=== PATIENT | female | born 1995 | race Caucasian/White ===

== ENCOUNTER 2017-07-28 16:22 | Emergency (ER) | payer MEDICAID, OTHER ==
[~2017-07-28] VITALS: Ht 170.2 cm; Wt 100.0 kg
[~2017-07-28 16:22] MED LIST: PREN1CAP7 PO
[2017-07-28 16:23] VITALS: BP 134/88; PULSE 107; RESP 15; TEMP 98.5; O2SAT 99
--- NOTE | 2017-07-28 17:49 | PD ---
HPI Chief Complaint: Abdominal Pain Time Seen by Provider: 17:40 Travel History International Travel<30 days: No Contact w/Intl Traveler<30days: No Traveled to known affect area: No History of Present Illness HPI 22-year-old , 3 months female presents to the ED for evaluation of 2 week history of 6/10 lower abdominal discomfort, radiating to the back. No alleviating or exacerbating factors reported. She endorses urinary urgency and thick white vaginal discharge. She denies fevers, chills, nausea, vomiting , decreased appetite, abdominal pain, changes in bowel habits, dysuria, hematuria. She endorses risk of . She states that she took a urine test at home that was "blank." LMP 07/10/17. She takes vitamins daily. No treatment attempted at home. PFSH Past Medical History ?: Unknown LMP: 07/10/17 Social History Alcohol Use: No Tobacco Use: No Substance Use: No Allergies-Medications (Allergen,Severity, Reaction): Coded Allergies: No Known Allergies (Unverified , 07/28/17) Reported Meds & Prescriptions Reported Meds & Active Scripts Active Bactrim DS (Sulfamethoxazole-Trimethoprim) 800-160 Mg Tab 1 Tab PO BID Citranatal [place] ( W/O Vit A W/ Fe Fumar) 27-1-260 Mg Cap 1 Cap PO DAILY Review of Systems Except as stated in HPI: all other systems reviewed are Neg Physical Exam Narrative GENERAL: Well-nourished, well-developed obese white female in no acute distress. SKIN: Focused skin assessment warm/dry. HEAD: Normocephalic. EYES: No scleral icterus. No injection or drainage. NECK: Supple, trachea midline. No JVD or lymphadenopathy. CARDIOVASCULAR: Regular rate and rhythm without murmurs, gallops, or rubs. RESPIRATORY: Breath sounds equal bilaterally. No accessory muscle use. GASTROINTESTINAL: Abdomen soft, non-tender, nondistended. Active bowel sounds. GENITOURINARY: Normal external genitalia without lesions or erythema. Vaginal vault without blood. Small amount of thick, stringy white drainage in the vault. Cervical os was closed without drainage. No cervical motion tenderness. Uterus nontender and nonenlarged. Bilateral adnexa nontender without masses. MUSCULOSKELETAL: No cyanosis, or edema. BACK: Nontender without obvious deformity. No CVA tenderness. Data Data Last Documented VS Vital Signs Date Time Temp Pulse Resp B/P (MAP) Pulse Ox O2 Delivery O2 Flow Rate FiO2 07/28/17 21:04 07/28/17 16:23 98.5 107 15 99 Orders Orders Urinalysis - C+S If Indicated (07/28/17 17:41) Ed Urine Pregnancytest Poc (07/28/17 17:41) Gc And Chlamydia Pcr (07/28/17 19:23) Wet Prep Profile (07/28/17 19:23) Ed Discharge Order (07/28/17 20:25) Labs Laboratory Tests Test 07/28/17 17:50 07/28/17 19:50 Urine Color LIGHT-YELLOW Urine Turbidity CLEAR Urine pH 6.0 Urine Specific [place] 1.009 Urine Protein NEG mg/dL Urine Glucose (UA) NEG mg/dL Urine Ketones NEG mg/dL Urine Occult Blood NEG Urine Nitrite NEG Urine Bilirubin NEG Urine Urobilinogen LESS THAN 2.0 MG/DL Urine Leukocyte Esterase MOD Urine RBC LESS THAN 1 /hpf Urine WBC 7 /hpf Urine Squamous Epithelial Cells 2 /hpf Microscopic Urinalysis Comment CULT NOT INDICATED Clue Cells (Wet Prep) NONE SEEN Vaginal Trichomonas (Wet Prep) NONE SEEN Vaginal Yeast (Wet Prep) NONE SEEN Chlamydia trachomatis DNA (PCR) NOT DETECTED Neisseria gonorrhoeae DNA (PCR) NOT DETECTED MDM Medical Decision Making Medical Screen Exam Complete: Yes Emergency Medical Condition: Yes Differential Diagnosis UTI versus early versus STI versus other Narrative Course 22-year-old 3 month female presents to the ED for evaluation of 2 week history of lower abdominal discomfort, radiating to the back. She endorses urinary urgency and thick white vaginal discharge. She denies fevers, chills, nausea, vomiting, decreased appetite, abdominal pain, changes in bowel habits, dysuria, hematuria. She endorses risk of . She states that she took a urine test at home that was "blank." LMP 07/10/17. She takes vitamins daily. Vitals reviewed. Abdominal exam is very reassuring. Pelvic exam reveals thick, stringy white discharge in the vaginal vault but is otherwise unremarkable. Urine test negative. UA shows moderate leukocyte esterase and 7 wbc's. No culture indicated. Wet prep negative. GC and chlamydia pending. I offered the patient empiric treatment of both which she refused. We'll treat the UTI with Bactrim twice a day 3 days. The patient is instructed take the medication as prescribed, return for worsening symptoms. She indicated understanding of the instructions and is agreeable to the care plan. She is stable and discharged home. Diagnosis Primary Impression: Abdominal pain Qualified Codes: R10.30 - Lower abdominal pain, unspecified Additional Impressions: Vaginal discharge Bacteriuria Referrals: Primary Care Physician Patient Instructions: General Instructions, Urinary Tract Infection in Women ( ED) Additional Instructions: Rest, hydrate. Take all antibiotics as they're prescribed, even if symptoms resolve. In other words, take all the medications until it is gone. Follow up with you primary care provider or the health department as discussed. Return to the ED for any urgent or emergent medical condition. Med/Other Pt SpecificInfo: Prescription(s) given Scripts Sulfamethoxazole-Trimethoprim (Bactrim DS) 800-160 Mg Tab 1 TAB PO BID for Infection, #6 TAB 0 Refills Prov: Hue Parr MD 07/28/17 Disposition: 01 DISCHARGE HOME Condition: Stable Lia Rubio Jul 28, 2017 17:49
[2017-07-28 18:47] LABS: BLOOD, URINE NEG (NEG); COMMENT (UR) CULT NOT INDICATED; CULTURE IF INDICATED CULT NOT INDICATED; GLUCOSE,URINE NEG (NEG); KETONE, URINE NEG (NEG); NITRITE,URINE NEG (NEG); SQUAMOUS EPITHELIAL CELL URINE 2 /hpf (0-5); URINE COLOR LIGHT-YELLOW (YELLW/STRAW)
[2017-07-28] MEDS ORDERED: BACT800T5 PO (20:23)
[2017-07-28 22:11] LABS: CHLAMYDIA PCR NOT DETECTED (NOT DETECT); NEISSERIA PCR NOT DETECTED (NOT DETECT)
== END 2017-07-28 21:06 | disposition home or self-care (01) ==
LOC: NEPD 16:22
DX: R10.30 Lower abdominal pain, unspecified (principal); N89.8 Other specified noninflammatory disorders of vagina; R82.71 Bacteriuria; R39.15 Urgency of urination
CPT/HCPCS: 81001; 84703; 87210; 87491; 87591; 99284